=== PATIENT | female | born 1975 | race African-American/Black ===

== ENCOUNTER 2021-05-14 15:14 | Emergency (ER) | payer MEDICARE, OTHER ==
[2021-05-14] MEDS ORDERED: Benzonatate 100 MG CAP ONE (16:33)
== END 2021-05-14 17:07 | disposition home or self-care (01) ==
LOC: CSHERS 15:14
DX: G93.3 Postviral and related fatigue syndromes (principal); R05.9 Cough, unspecified
CPT/HCPCS: 71046

== ENCOUNTER 2021-08-20 14:54 | Observation (INO) | payer MEDICARE, MEDICAID ==
[2021-08-20 15:54] VITALS: BMI 37.6
[2021-08-20] MEDS ORDERED: Nitroglycerin 0.4 MG TAB (25 Tab Bottle) SL PRN (17:39)
[2021-08-20] MEDS ORDERED: hydrALAZINE 20 MG/ML VIAL SLOW IVP PRN (18:03)
[2021-08-20] MEDS ORDERED: Dextrose 50% Abboject 50 ML SYRINGE SLOW IVP PRN (18:06)
[2021-08-20] MEDS ORDERED: Dextrose 5% in Water 1,000 ML IV PRN (18:06)
[2021-08-20] MEDS ORDERED: HumaLOG 300 UNITS/3 ML VIAL SC PRN ×2 (18:06)
[2021-08-20] MEDS ORDERED: Electrolyte Replacement Protocol 1 EACH FS PRN (18:15)
[2021-08-20] MEDS ORDERED: Enoxaparin Sodium 120 MG/0.8 ML SYRINGE SC SCH (18:15)
[2021-08-20] MEDS ORDERED: Ventolin HFA Inhaler 60 PUFF INHALER INH PRN (18:27)
[2021-08-20] MEDS ORDERED: Ondansetron ODT 4 MG TAB PO PRN (18:42)
[2021-08-20] MEDS ORDERED: Acetaminophen 325 MG TAB PO PRN (18:42)
[2021-08-20] MEDS: Nitroglycerin 2% Ointment 1 INCH/1 GM Packet TOP SCH (22:38)
[2021-08-21 01:02] LABS: SARS-CoV-2 PCR by NAA Not Detected (NotDetected)
[2021-08-21 04:35] LABS: #Eosinphils 0.1 10x3/uL (0.0-0.5); #Monocytes 0.4 10x3/uL (0.0-1.1); #Neutrophils 2.4 10x3/uL (1.5-8.4); %Basophils 0.6 % (0.0-2.0); %Eosinophils 2.3 % (0.0-6.0); %Lymphocytes 44.6 % (18.0-47.0); %Monocytes 7.4 % (0.0-10.0); %Neutrophils 44.7 % (40.0-75.0); Hemoglobin 11.1 g/dL (12.0-15.5); Mean Corpuscular HGB CONC 33.3 g/dL (32.0-36.0); Mean Corpuscular Hemoglobin 29.2 pg (27.0-33.0); Mean Corpuscular Volume 87.6 fl (81.6-98.3); Mean Platelet Volume 8.9 fl (7.4-10.4); Platelet Count 253 10x3/uL (150-450); RBC Distribution Width 13.2 % (11.5-14.5); White Blood Cell (WBC) Count 5.3 10x3/uL (3.5-10.5)
[2021-08-21 04:48] LABS: Anion Gap 19 mmol/L (10-20); BUN (Urea Nitrogen) 9 mg/dL (7.0-18.7); Calc. Creatinine Clearance 193 mL/min (70-130); Calcium 9.1 mg/dL (7.8-10.44); Carbon Dioxide 22 mmol/L (22-29); Cardiac Risk 6.5 (Less than 4.5); Chloride 102 mmol/L (98-107); Cholesterol 163 mg/dl (< 200 Desired); Glucose 154 mg/dL (70-105); HDL Cholesterol 25 mg/dL (>60 Neg Risk); Magnesium 1.7 mg/dL (1.6-2.6); Potassium 3.9 mmol/L (3.5-5.1); Sodium 139 mmol/L (136-145); Triglycerides 743 mg/dL (Less than 150)
[2021-08-21] MEDS: Nitroglycerin 2% Ointment 1 INCH/1 GM Packet TOP SCH ×2 (05:23→14:10)
[2021-08-21] MEDS ORDERED: Magnesium 2 GM/50 ML(in water) 2 GM in Premix Bag 1 BAG IVPB SCH (06:00)
[2021-08-21] MEDS ORDERED: Levothyroxine Sodium 100 MCG TAB PO SCH (06:00)
[2021-08-21] MEDS ORDERED: Mometasone/Formoterol 60 PUFF AER INH SCH (06:30)
[2021-08-21] MEDS ORDERED: Hydrochlorothiazide 25 MG TAB PO SCH (09:00)
[2021-08-21] MEDS ORDERED: Aspirin Chewable 81 MG TAB PO SCH (09:00)
[2021-08-21] MEDS ORDERED: Enoxaparin Sodium 40 MG/0.4 ML SYRINGE SC SCH (09:00)
[2021-08-21] MEDS ORDERED: Aspirin 81 mg Enteric Coated Tablet PO SCH (09:00)
[2021-08-21] MEDS ORDERED: Lisinopril 10 MG TAB PO SCH (09:00)
[2021-08-21] MEDS ORDERED: Enoxaparin Sodium 120 MG/0.8 ML SYRINGE SC SCH (09:00)
[2021-08-21] MEDS ORDERED: Amlodipine 5 MG TAB PO SCH (09:00)
[2021-08-21] MEDS ORDERED: Topiramate 100 MG TAB PO SCH (09:00)
[2021-08-21 12:03] VITALS: BP 134/94; TEMP 97.6
[2021-08-21 12:42] LABS: Hemoglobin A1c 6.6 % (4.0-6.0)
== END 2021-08-21 15:19 | disposition home or self-care (01) ==
LOC: CSHTELE 14:54
PROVIDERS: ADMIT Internal Medicine; ATTEND Internal Medicine
DX: R07.9 Chest pain, unspecified (principal); I10 Essential (primary) hypertension; E11.9 Type 2 diabetes mellitus without complications; G40.909 Epilepsy, unspecified, not intractable, without status epilepticus; E78.5 Hyperlipidemia, unspecified; E66.01 Morbid (severe) obesity due to excess calories; Z79.899 Other long term (current) drug therapy; Z79.82 Long term (current) use of aspirin; I25.10 Atherosclerotic heart disease of native coronary artery without angina pectoris; F41.9 Anxiety disorder, unspecified; F32.A Depression, unspecified; G47.33 Obstructive sleep apnea (adult) (pediatric); M10.9 Gout, unspecified; M79.605 Pain in left leg; M79.604 Pain in right leg; Z86.718 Personal history of other venous thrombosis and embolism; E03.9 Hypothyroidism, unspecified; Z20.822 Contact with and (suspected) exposure to COVID-19
CPT/HCPCS: 80048; 80061; 82962 ×2; 83036; 83735; 84443; 84484; 85025; 93306; 93970; 94640; 94664; 96372 ×2; 96374; G0378 ×2; U0003; U0005; 36416; J1650; J3475

== ENCOUNTER 2021-11-04 00:02 | Emergency (ER) | payer OTHER | END 2021-11-04 01:10 | disposition home or self-care (01) | LOC: CSHERS 00:02 | DX: M25.521 Pain in right elbow (principal); H92.02 Otalgia, left ear; I11.0 Hypertensive heart disease with heart failure; I50.9 Heart failure, unspecified; E11.9 Type 2 diabetes mellitus without complications; E03.9 Hypothyroidism, unspecified ==

== ENCOUNTER 2023-01-25 18:11 | Emergency (ER) | payer OTHER | END 2023-01-25 22:40 | disposition home or self-care (01) | LOC: CSHERS 18:11 | DX: M25.562 Pain in left knee (principal); I11.0 Hypertensive heart disease with heart failure; I50.9 Heart failure, unspecified ==

== ENCOUNTER 2023-03-30 13:56 | Emergency (ER) | payer OTHER ==
[~2023-03-30 13:56] MED LIST: Iopamidol 370 76% 100 ML VIAL ONE
[2023-03-30 16:09] LABS: #Basophils 0.1 10x3/uL (0.0-0.2); #Eosinphils 0.2 10x3/uL (0.0-0.5); #Monocytes 0.4 10x3/uL (0.0-1.1); #Neutrophils 1.9 10x3/uL (1.5-8.4); %Basophils 1.1 % (0.0-2.0); %Eosinophils 3.5 % (0.0-6.0); %Lymphocytes 43.4 % (18.0-47.0); %Monocytes 9.6 % (0.0-10.0); %Neutrophils 42.2 % (40.0-75.0); Hemoglobin 12.1 g/dL (12.0-15.5); Mean Corpuscular HGB CONC 32.7 g/dL (32.0-36.0); Mean Corpuscular Hemoglobin 28.7 pg (27.0-33.0); Mean Corpuscular Volume 87.9 fl (81.6-98.3); Mean Platelet Volume 8.9 fl (7.4-10.4); Platelet Count 271 10x3/uL (150-450); RBC Distribution Width 13.2 % (11.5-14.5); Red Blood Cell (RBC) Count 4.21 10x6/uL (3.90-5.03); White Blood Cell (WBC) Count 4.6 10x3/uL (3.5-10.5)
[2023-03-30 16:20] LABS: BHCG - Serum Negative (NEGATIVE); Pregs Control Bar Appear? YES (CONTROL BAR)
[2023-03-30 16:21] LABS: Pregs Control Background? CLEAR/WHITE (CLR/WHITE)
[2023-03-30 16:30] LABS: ALT (SGPT) 37 U/L (8-55); AST (SGOT) 35 U/L (5-34); Alkaline Phosphatase 83 U/L (40-110); Anion Gap 12 mmol/L (10-20); BUN (Urea Nitrogen) 8 mg/dL (7.0-18.7); Bilirubin, Total 0.2 mg/dL (0.2-1.2); Calc. Creatinine Clearance 0 mL/min (70-130); Calcium 8.9 mg/dL (7.8-10.44); Carbon Dioxide 26 mmol/L (22-29); Chloride 105 mmol/L (98-107); Estimated GFR 109; Globulin 4.1 g/dL (2.4-3.5); Glucose 77 mg/dL (70-105); Potassium 4.1 mmol/L (3.5-5.1); Protein, Total 8.1 g/dL (6.0-8.3); Sodium 139 mmol/L (136-145)
== END 2023-03-30 17:29 | disposition home or self-care (01) ==
LOC: CSHERS 13:56
DX: M79.661 Pain in right lower leg (principal); L50.9 Urticaria, unspecified; I11.0 Hypertensive heart disease with heart failure; I50.9 Heart failure, unspecified; E11.9 Type 2 diabetes mellitus without complications; E03.9 Hypothyroidism, unspecified; Z86.718 Personal history of other venous thrombosis and embolism
CPT/HCPCS: 71275; 80053; 84703; 85025; Q9967

== ENCOUNTER 2024-12-13 15:17 | Emergency (ER) | payer OTHER | END 2024-12-13 16:50 | disposition home or self-care (01) | LOC: CSHERS 15:17 | DX: U07.1 COVID-19 (principal); E11.9 Type 2 diabetes mellitus without complications; I10 Essential (primary) hypertension; J44.9 Chronic obstructive pulmonary disease, unspecified; Z75.3 Unavailability and inaccessibility of health-care facilities | CPT/HCPCS: 87426; 94640; 94760; J7620 ==